=== PATIENT | male | born 1970 | race Caucasian/White ===

== ENCOUNTER 2019-02-02 10:14 | Observation (INO) | payer BC ==
--- NOTE | 2019-02-02 10:23 | EDM.PDOC ---
ED HPI GENERAL MEDICAL PROBLEM - General Stated Complaint: CHEST PAIN Time Seen by Provider: 02/02/19 10:14 Source of Information: Reports: Patient History Limitations: Reports: No Limitations - History of Present Illness INITIAL COMMENTS - FREE TEXT/NARRATIVE: 48 y.o.w.m -smoker, H/O NIDDM and HTN, went to the clinic and was transferred to the ED because of chest pain. Pt rated the Chest pain as 8/10. He received ASA at the clinic after which he became chest pain free. No diaphoresis, no N/V/ D, pt has a sedentary live style. CAD Risk Factors include: HTN, Morbid obesity NIDDM, Smoker etc. No dizziness, no SOB no other acute med issues. BP 164/95 RR 20 Pulse ox 96% on RA, Temp 36.8 Pulse 89 Onset Date: 02/01/19 Onset Time: 19:00 Duration: Getting Worse, Intermittent Location: Reports: Chest Quality: Reports: Dull, Throbbing Severity: Moderate Improves with: Reports: None Worsens with: Reports: None Context: Reports: Other (riskfactors for PE anbd CAD) Associated Symptoms: Reports: Chest Pain, Shortness of Breath Treatments [employer]ES: Reports: Aspirin (at the clinic) left side lower chest Pain Score (Numeric/FACES): 3 - Related Data Allergies Allergy/AdvReac Type Severity Reaction Status Date / Time No Known Allergies Allergy Verified 02/02/19 11:17 Home Meds: Home Meds Ezetimibe 10 mg PO DAILY 02/02/19 [History] Losartan/Hydrochlorothiazide [Losartan-HCTZ 100-25 MG] 1 tab PO BEDTIME [History] amLODIPine Besylate [Amlodipine Besylate] 5 mg PO DAILY 02/02/19 [History] metFORMIN HCl [Metformin HCl] 1,000 mg PO BID 02/02/19 [History] Naproxen Sodium [Aleve] 220 mg PO BID PRN #30 tab 02/03/19 [Rx] ED ROS GENERAL - Review of Systems Review Of Systems: See Below Constitutional: Reports: No Symptoms HEENT: Reports: No Symptoms Respiratory: Reports: Shortness of Breath Cardiovascular: Reports: Chest Pain Endocrine: Reports: No Symptoms GI/Abdominal: Reports: No Symptoms : Reports: No Symptoms Musculoskeletal: Reports: No Symptoms Skin: Reports: No Symptoms Neurological: Reports: No Symptoms Psychiatric: Reports: No Symptoms Hematologic/Lymphatic: Reports: No Symptoms Immunologic: Reports: No Symptoms ED EXAM, GENERAL - Physical Exam Exam: See Below Exam Limited By: Other (Obsity) General Appearance: Alert, WD/WN, Mild Distress, Moderate Distress Eye Exam: Bilateral Eye: Normal Inspection Ears: Normal External Exam Ear Exam: Bilateral Ear: Auricle Normal Nose: Normal Inspection, Normal Mucosa, No Blood Throat/Mouth: Normal Inspection, Normal Lips, Normal Voice, No Airway Compromise Head: Atraumatic, Normocephalic Neck: Normal Inspection, Supple Respiratory/Chest: Lungs Clear, Normal Breath Sounds, Chest Non-Tender Cardiovascular: Normal Peripheral Pulses, Regular Rate, Rhythm, No Edema, No Gallop, No JVD, No Murmur Peripheral Pulses: 2+: Brachial (L) GI/Abdominal: Normal Bowel Sounds, Soft, Non-Tender, No Organomegaly, No Abnormal Bruit, No Mass, Pelvis Stable (Male) Exam: No Hernia Rectal (Males) Exam: Deferred Back Exam: Normal Inspection, Full Range of Motion Extremities: Normal Inspection, Normal Range of Motion, Non-Tender Neurological: Alert, Oriented, CN II-XII Intact, Normal Cognition, Normal Gait Psychiatric: Normal Affect, Normal Mood Skin Exam: Warm, Dry, Intact, No Rash, Pallor Lymphatic: No Adenopathy EKG INTERPRETATION EKG Date: 02/02/19 Time: 10:15 Rhythm: NSR Rate (Beats/Min): 86 [place]: Normal P-Wave: Present QRS: Normal ST-T: Normal QT: Normal Comparison: NA - No Prior EKG Course - Vital Signs Text/Narrative:: 48 y.o.w.m -smoker, H/O NIDDM and HTN, went to the clinic and was transferred to the ED because of chest pain. Pt rated the Chest pain as 8/10. He received ASA at the clinic after which he became chest pain free. No diaphoresis, no N/V/ D, pt has a sedentary live style. No PE in the past. No F/H of PE. CAD Risk Factors include: HTN, Morbid obesity NIDDM, Smoker etc. No dizziness, no SOB no other acute med issues. BP 164/95 RR 20 Pulse ox 96% on RA, Temp 36.8 Pulse 89 PE: Morbid obese smoker with sedentary life style came to the ed with CP, last food intake last night Imaging: CXR: NAD Angio Chest: Non diagnostic study because of poor contrast opacification; Doppler US both lower extremities results are pending Labs: D Dimer 1.01 CBC nl HDL 26 CHOL/HDL ratio elevated. Triglyceride 325 Impression: NIDDM, Morbid obesity, Elevated D Dimer. Chol/HDL ration elevated. Tx: ASA [employer] 1.27 pm Consultation: Dr. Lopez, Hospitalist, [place]: VQ study not recommended, would recommend Doppler US both lower legs because Angio CT is nonconclusive. 1.52 pm Consultation: Dr. Colon, Hospitalist: Accepted the pt for admission Reexam: Pt was pain free in the ED, was requesting a Nicotine Patch Plan: Admit to med/surge Tele Last Recorded V/S: Last Vital Signs Temp 37.0 C 02/03/19 09:00 Pulse 88 02/03/19 09:00 Resp 18 02/03/19 09:00 BP 135/98 H 02/03/19 10:46 Pulse Ox 95 02/03/19 09:00 - Orders/Labs/Meds Labs: Laboratory Tests 02/02/19 02/02/19 02/02/19 Range/Units 10:30 10:30 10:30 WBC 6.2 (4.5-12.0) X10-3/uL RBC 4.63 (4.30-5.75) x10(6)uL Hgb 15.4 (13.5-17.8) g/dL Hct 43.9 (30.0-51.3) % MCV 94.9 (80-96) fL MCH 33.2 (27.7-33.6) pg MCHC 35.0 (32.2-35.4) g/dL RDW 11.9 (11.5-15.5) % Plt Count 197 (125-369) X10(3)uL MPV 7.4 (7.4-10.4) fL Neut % (Auto) 53.8 (46-82) % Lymph % (Auto) 30.0 (13-37) % [place] % (Auto) 11.9 (4-12) % Eos % (Auto) 4 (1.0-5.0) % Baso % (Auto) 0 (0-2) % Neut # (Auto) 3.4 (1.6-8.3) # Lymph # (Auto) 1.9 (0.6-5.0) # [place] # (Auto) 0.7 (0.0-1.3) # Eos # (Auto) 0.2 (0.0-0.8) # Baso # (Auto) 0.0 (0.0-0.2) # PT 9.6 (8.7-11.1) INR 0.99 (0.89-1.13) D-Dimer, Quantitative 1.01 H (0.0-0.59) mg/LFEU Sodium 139 (135-145) mmol/L Potassium 4.1 (3.5-5.3) mmol/L Chloride 102 (100-110) mmol/L Carbon Dioxide 25 (21-32) mmol/L BUN 18 (7-18) mg/dL Creatinine 1.1 (0.70-1.30) mg/dL Est Cr Clr Drug Dosing TNP Estimated GFR (MDRD) > 60 (>60) BUN/Creatinine Ratio 16.4 (9-20) Glucose 158 H (80-116) mg/dL Calcium 9.1 (8.6-10.2) mg/dL Troponin I (<0.017-0.056) ng/mL Triglycerides 319 H (15-150) mg/dL Cholesterol 199 (50-200) mg/dL LDL Cholesterol Direct 112 (60-130) mg/dL HDL Cholesterol 28 L (40-75) mg/dL Cholesterol/HDL Ratio 7.1 H (0-5) /30/19 Range/Units 10:30 WBC (4.5-12.0) X10-3/uL RBC (4.30-5.75) x10(6)uL Hgb (13.5-17.8) g/dL Hct (30.0-51.3) % MCV (80-96) fL MCH (27.7-33.6) pg MCHC (32.2-35.4) g/dL RDW (11.5-15.5) % Plt Count (125-369) X10(3)uL MPV (7.4-10.4) fL Neut % (Auto) (46-82) % Lymph % (Auto) (13-37) % [place] % (Auto) (4-12) % Eos % (Auto) (1.0-5.0) % Baso % (Auto) (0-2) % Neut # (Auto) (1.6-8.3) # Lymph # (Auto) (0.6-5.0) # [place] # (Auto) (0.0-1.3) # Eos # (Auto) (0.0-0.8) # Baso # (Auto) (0.0-0.2) # PT (8.7-11.1) INR (0.89-1.13) D-Dimer, Quantitative (0.0-0.59) mg/LFEU Sodium (135-145) mmol/L Potassium (3.5-5.3) mmol/L Chloride (100-110) mmol/L Carbon Dioxide (21-32) mmol/L BUN (7-18) mg/dL Creatinine (0.70-1.30) mg/dL Est Cr Clr Drug Dosing Estimated GFR (MDRD) (>60) BUN/Creatinine Ratio (9-20) Glucose (80-116) mg/dL Calcium (8.6-10.2) mg/dL Troponin I < 0.017 L (<0.017-0.056) ng/mL Triglycerides (15-150) mg/dL Cholesterol (50-200) mg/dL LDL Cholesterol Direct (60-130) mg/dL HDL Cholesterol (40-75) mg/dL Cholesterol/HDL Ratio (0-5) Meds: Medications Discontinued Medications Generic Name Dose Route Start Last Admin Trade Name Freq PRN Reason Stop Dose Admin Amlodipine Besylate 5 mg 02/03/19 09:00 02/03/19 10:46 Norvasc PO Not Given DAILY LINDSAY Hydrochlorothiazide 25 mg 02/02/19 22:00 Hydrochlorothiazide PO BEDTIME LINDSAY Hydrochlorothiazide 25 mg 02/02/19 21:00 02/02/19 22:14 Hydrochlorothiazide PO 25 mg BEDTIME LINDSAY Administration Iopamidol 100 ml 02/02/19 14:27 02/02/19 15:05 Isovue-370 (76%) IV 02/02/19 14:28 95 ml ONETIME ONE Administration Losartan Potassium 100 mg 02/03/19 21:00 Cozaar PO BEDTIME LINDSAY Losartan Potassium 100 mg 02/02/19 21:00 02/02/19 22:13 Cozaar PO 100 mg BEDTIME LINDSAY Administration Metformin HCl 1,000 mg 02/02/19 18:00 02/03/19 10:45 Glucophage PO Not Given BIDMEALS LINDSAY Nicotine 21 mg 02/02/19 14:14 02/02/19 16:30 Habitrol TRDERM 02/02/19 14:15 Not Given ONETIME ONE Non-Formulary Medication 1 tab 02/02/19 20:30 Losartan/Hydrochlorothiazide [Losartan-Hctz 100-25 Mg] PO DAILY LINDSAY Non-Formulary Medication 1 tab 02/02/19 21:00 Losartan/Hydrochlorothiazide [Losartan-Hctz 100-25 Mg] PO BEDTIME LINDSAY Sodium Chloride 10 ml 02/02/19 13:58 02/02/19 10:25 Saline Flush FLUSH 10 ml ASDIRECTED PRN Administration Keep Vein Open Departure - Departure Time of Disposition: 10:00 Disposition: Refer to Observation Condition: Fair Clinical Impression: Chest pain Qualifiers: Ischemic chest pain type: unspecified angina pectoris type
[2019-02-02] MEDS ORDERED: Sodium Chloride 0.9% 10 ML Syringe FLUSH PRN (13:58)
[2019-02-02] MEDS ORDERED: Nicotine 21 MG/24 Hr Patch TRDERM ONE (14:14)
[2019-02-02] MEDS ORDERED: Iopamidol 755 Mg/ML 100 ML Bottle IV ONE (14:27)
--- NOTE | 2019-02-02 17:21 | HP ---
ADMISSION DATE: 02/02/2019 CHIEF COMPLAINT: Chest pain. HISTORY OF PRESENT ILLNESS: Mr. Goyal is a 48-year-old man with a history of hypertension, type 2 diabetes, and obesity, who came into the clinic today at [place] because of chest pain. He was sent to the emergency room where he was evaluated by Dr. Hanson and now he is admitted to acute care for overnight observation on telemetry. Shlomo states he has had an episode like this similar in the past. He also continues to do weightlifting and he feels he might have developed some chest pain from straining. He did not have associated shortness of breath, nausea. He has not had any cardiac history. PAST MEDICAL HISTORY: Significant for: 1. Chronic obesity. 2. Chronic essential hypertension. 3. Type 2 diabetes. 4. He is status post a concussion at age 11 when he fell in the gymnasium. 5. Right wrist fracture at age 13 during baseball. 6. Right tibial fracture at age 9 when he was kicked in a soccer game. 7. Shlomo also reports a recent decline in vision in his right eye. He saw Ophthalmology and relates that a retina scan showed his retina to be dry and that it would come back on its own. His vision is not back to normal but is improving. 8. Obstructive sleep apnea, he states he has not been able to tolerate his CPAP machine. No other past medical or surgical history. MEDICATIONS: 1. Zetia 10 mg daily. 2. Amlodipine 5 mg b.i.d. 3. Metformin 1000 mg daily. ALLERGIES: None. HABITS: Occasional cigarette, not everyday, he has been trying to quit. Occasional alcohol, perhaps twice a month. Two cups of coffee per day. FAMILY AND SOCIAL HISTORY: The patient is single. He lives in [place]. 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 REVIEW OF SYSTEMS: GENERAL: No seizure, syncope, or recent significant weight change. SKIN: Negative for rash. HEENT: No recent changes in hearing. He had vision change as described above. No sore throat or URI. No cough or purulent sputum. He does report he has an occasional wheeze at night when he lays in bed. GASTROINTESTINAL: No nausea, vomiting, diarrhea, constipation, hematochezia, or melena. GENITOURINARY: No hematuria or UTI symptoms. MUSCULOSKELETAL: No joint inflammation, swelling, or skin rash. PHYSICAL EXAMINATION: GENERAL: He is alert, comfortable, and healthy in appearance. VITAL SIGNS: Blood pressure 161/68, pulse 94 and regular, respirations 19, O2 saturation 95% on room air, temperature 98. Weight stated 340 pounds. SKIN: Anicteric. Warm, dry without rash. HEENT: Shows clear TMs. Pupils are equal and reactive. Oropharynx clear. NECK: Supple. Thyroid is normal. LUNGS: Clear at the bases. Chest wall shows an area of tenderness at the sternocostal joint at approximately 7 and 8 on the left. HEART: Regular. No murmur, rub, or gallop heard. There is no JVD. Carotids are brisk without bruits. ABDOMEN: Obese, soft, nontender. No masses or organomegaly. EXTREMITIES: Warm, well perfused. He has excellent pedal pulses. No edema. Sensation is intact on the feet bilaterally. NEUROLOGIC: Normal. LABORATORY DATA: White count 6200, hemoglobin 15.4. D-dimer 1.01. Electrolytes normal. Creatinine 1.1, glucose 158. Troponin less than 0.017. Cholesterol 199, HDL 28, LDL 112. Ultrasound of both lower extremities was negative. Chest x-ray and EKG are unremarkable. ASSESSMENT: 1. Atypical chest pain, not likely cardiac. 2. Obesity. 3. Type 2 diabetes. 4. Hypertension. 5. Hyperlipidemia. 6. Relative statin intolerance with muscle cramps. 7. Obstructive sleep apnea without current treatment. PLAN: We will monitor Shlomo overnight with telemetry. Recheck his troponin in the morning. I have also discussed with him alternative therapy for sleep apnea and that he should probably pursue a followup sleep study since it has been several years. /[id number] RO/MODL
[2019-02-02] MEDS: metFORMIN 1,000 MG Tab PO SCH (20:35)
[2019-02-02] MEDS ORDERED: Losartan 100 MG Tab PO SCH (21:00)
[2019-02-02] MEDS ORDERED: Hydrochlorothiazide 25 MG Tab PO SCH ×2 (21:00→22:00)
[2019-02-03] MEDS ORDERED: amLODIPine 5 MG Tab PO SCH (09:00)
[2019-02-03] MEDS: metFORMIN 1,000 MG Tab PO SCH (10:45)
--- NOTE | 2019-02-03 12:00 | DISCH ---
DISCHARGE DATE: 02/03/2019 HISTORY: Shlomo is a 48-year-old man with a history of hypertension, hyperlipidemia, and obesity. He came into the [facility] because of chest pain. He was sent to the ER by Dr. Cloud, where Dr. Hanson evaluated and recommended observation admission. He was placed on telemetry overnight. He on exam had chest wall tenderness and cardiac evaluation was negative. Repeat troponin was normal in the morning and he was feeling better after resting. Shlomo had undergone bilateral leg ultrasound Dopplers to rule out leg clot because of a slightly elevated D-dimer. These were normal. He is discharged in good condition to follow up with his primary provider as an outpatient. MEDICATIONS ON DISCHARGE: 1. Metformin 1000 mg b.i.d. 2. Losartan HCT 100/25 one daily. 3. Amlodipine 5 mg daily. 4. Aleve 1 b.i.d. p.r.n. chest pain. He is to recheck on a p.r.n. basis if these pains do not resolve. /[id number] YESSENIA/ML
[2019-02-03] MEDS ORDERED: Losartan 100 MG Tab PO SCH (21:00)
== END 2019-02-03 10:15 | disposition home or self-care (01) ==
LOC: FB.ED 10:14 → FB.MS 13:58
PROVIDERS: ADMIT Family Medicine; ATTEND Family Medicine
DX: R07.89 Other chest pain (principal); I10 Essential (primary) hypertension; E78.5 Hyperlipidemia, unspecified; E11.9 Type 2 diabetes mellitus without complications; F17.210 Nicotine dependence, cigarettes, uncomplicated; R25.2 Cramp and spasm; T46.6X5A Adverse effect of antihyperlipidemic and antiarteriosclerotic drugs, initial encounter; G47.33 Obstructive sleep apnea (adult) (pediatric); E66.9 Obesity, unspecified; Z68.41 Body mass index [BMI] 40.0-44.9, adult; Z79.84 Long term (current) use of oral hypoglycemic drugs
CPT/HCPCS: 36415; 71046; 71275; 80048; 80061; 84484; 85025; 85379; 85610; 93005; 93970; 99285; A9270; G0378; Q9967